=== PATIENT | female | born 1935 | race African-American/Black ===

== ENCOUNTER 2021-11-17 12:06 | Inpatient (IN) | payer MEDICARE, MEDICAID ==
[~2021-11-17] VITALS: Ht 175.3 cm; Wt 75.3 kg
[2021-11-17] MEDS ORDERED: LEVOFLOXACIN 750MG PREMIX 150 ML IV ONE (13:45)
[2021-11-17] MEDS ORDERED: VANCOMYCIN 1G PREMIX 200 ML IV ONE (13:45)
[2021-11-17 14:06] LABS: CHLORIDE 99 mEq/L (98-107)
[2021-11-17] MEDS ORDERED: VANCOMYCIN 1GM PMX (XELLIA) 200 ML IV NR (14:45)
[2021-11-17] MEDS ORDERED: SODIUM CHLORIDE 0.9% 1000ML BAG (SEPSIS BOLUS) IV ONE (15:15)
[2021-11-17 15:17] LABS: BASOPHILS % 0.4 % (0.0-2.0); EOSINOPHILS % 2.8 % (0.0-5.0); HEMATOCRIT. 29.2 % (36.0-48.0); LYMPHOCYTES % 18.1 % (20.0-50.0); MEAN CORPUSCULAR HEMOGLOBIN 24.4 pg (28.0-32.0); MEAN CORPUSCULAR VOLUME 79.3 fL (81.0-99.0); MEAN PLATELET VOLUME 9.9 fl (7.4-10.4); MONOCYTES % 8.9 % (2.0-8.0); NEUTROPHILS % 69.8 % (40.0-76.0); PLATELET 177 x1000/uL (130-400); RED BLOOD CELL COUNT 3.68 mill/uL (4.2-5.4); RED CELL DISTRIBUTION WIDTH 17.8 % (11.6-14.6)
[2021-11-17 17:18] LABS: BG BASE EXCESS 6.1 mmol/L (-2.0-2.0); BG CARBOXYHEMOGLOBIN 0.3 % (0.5-1.5); BG DEOXYHEMOGLOBIN 0.3 % (0.0-5.0); BG FRACTION INSPIRED OXYGEN 100; BG HCO3 ACT 32.6 mmol/L (22.0-26.0); BG METHEMOGLOBIN 0.1 % (0.0-1.5); BG OXYGEN SATURATION 99.7 % (92.0-98.5); BG OXYHEMOGLOBIN 99.3 % (94.0-97.0); BG PCO2 58.8 mmHg (35.0-45.0); BG PH 7.362 (7.350-7.450); BG PO2 450.9 mmHg (75.0-100.0); BG SAMPLE SITE RIGHT RADIAL; BG TOTAL HEMOGLOBIN 9.7 g/dL (12.0-18.0); BG VENT MODE VENT - AC
[2021-11-17 18:12] LABS: CLARITY URINE CLEAR (CLEAR); COLOR URINE YELLOW (YELLOW); KETONES URINE NEGATIVE (NEGATIVE); LEUKOCYTE ESTERASE URINE 2+ (NEGATIVE); NITRITE URINE NEGATIVE (NEGATIVE); OCCULT BLOOD URINE NEGATIVE (NEGATIVE); PH URINE 8.5 (4.5-8.0); PROTEIN URINE 1+ (NEGATIVE); SPECIFIC GRAVITY URINE 1.017 (1.005-1.030); UROBILINOGEN URINE 0.2 E.U./dL (0.2-1.0)
[2021-11-17] MEDS ORDERED: NOREPINEPHRINE 8MG/250ML PMX 250 ML IV ONE (19:45)
[2021-11-17] MEDS ORDERED: ACETAMINOPHEN 325MG TABLET PO PRN (20:30)
[2021-11-17] MEDS ORDERED: ONDANSETRON HCL 4MG/2ML INJ IV PRN (20:30)
[2021-11-17] MEDS ORDERED: GUAIFENESIN 200MG/10ML SUGAR FREE UDC PO PRN (20:30)
[2021-11-17] MEDS: DEXT 5%/LACTATED RINGERS 1,000 ML IV NR (20:45)
[2021-11-17] MEDS ORDERED: CEFEPIME 1,000 MG in DEXTROSE 5% WATER 50 ML IV SCH (21:00)
[2021-11-17] MEDS: ENOXAPARIN 40MG/0.4ML SYR SUBCUT SCH (21:00)
[2021-11-17] MEDS: IPRATROPIUM/ALBUTEROL 0.5-3(2.5)MG/3ML NEB HHN SCH (21:25)
[2021-11-17] MEDS ORDERED: VANCOMYCIN 750 MG in DEXT 5% WATER 250 ML IV SCH (22:00)
[2021-11-18] VITALS (67 sets, daily range): BP systolic 67–155; BP diastolic 25–90
[2021-11-18] MEDS: IPRATROPIUM/ALBUTEROL 0.5-3(2.5)MG/3ML NEB HHN SCH ×4 (03:12→20:52)
[2021-11-18 04:33] LABS: HEMATOCRIT. 26.7 % (36.0-48.0); HEMOGLOBIN. 8.4 g/dL (12.0-16.0); MEAN CORPUSCULAR HEMOGLOBIN 24.4 pg (28.0-32.0); MEAN CORPUSCULAR VOLUME 77.6 fL (81.0-99.0); MEAN PLATELET VOLUME 9.4 fl (7.4-10.4); PLATELET 200 x1000/uL (130-400); RED BLOOD CELL COUNT 3.45 mill/uL (4.2-5.4); RED CELL DISTRIBUTION WIDTH 17.4 % (11.6-14.6)
[2021-11-18 04:57] LABS: CHLORIDE 103 mEq/L (98-107)
[2021-11-18 05:15] LABS: PLATELET ESTIMATE NORMAL
[2021-11-18] MEDS: DEXT 5%/LACTATED RINGERS 1,000 ML IV SCH ×2 (06:30→18:51)
[2021-11-18] MEDS ORDERED: DEXTROSE 50% WATER 50ML SYRINGE IV PRN (06:30)
[2021-11-18] MEDS: BLOOD SUGAR DIAGNOSTIC STRIP TEST SCH ×4 (06:56→21:15)
[2021-11-18] MEDS: INSULIN LISPRO 100 UNITS/ML SUBCUT SCH ×4 (07:10→21:05)
[2021-11-18] MEDS: MIDODRINE HCL 5MG TABLET PEG SCH ×3 (09:00→17:57)
[2021-11-18] MEDS ORDERED: NOREPINEPHRINE 8MG/250ML PMX 250 ML IV PRN (10:00)
[2021-11-18] MEDS ORDERED: NOREPINEPHRINE 8 MG in DEXTROSE 5% WATER 250 ML IV PRN (10:00)
[2021-11-18] MEDS ORDERED: CEFEPIME 1,000 MG in DEXTROSE 5% WATER 50 ML IV SCH (11:00)
[2021-11-18] MEDS: PANTOPRAZOLE SODIUM 40 MG/VIAL IV SCH (12:59)
[2021-11-18] MEDS: ACETYLCYSTEINE 100MG/ML 10% VIAL 4ML INH SCH (14:11)
[2021-11-18] MEDS ORDERED: DIATR MEGLU/DIATRIZOATE SOLN 30ML ONE (14:53)
[2021-11-18] MEDS ORDERED: LEVOFLOXACIN 750MG PREMIX 150 ML IV SCH (17:00)
[2021-11-18] MEDS: METOCLOPRAMIDE HCL 10MG/2ML VIAL IV SCH ×2 (17:57→23:10)
[2021-11-18] MEDS: SUCRALFATE 1 G/10 ML UDC GT SCH ×2 (17:57→23:10)
[2021-11-18] MEDS: ENOXAPARIN 40MG/0.4ML SYR SUBCUT SCH (21:06)
[2021-11-18] MEDS: DEXT 5%/LACTATED RINGERS 1,000 ML IV NR (21:13)
[2021-11-19] VITALS (90 sets, daily range): BP systolic 64–154; BP diastolic 34–79
[2021-11-19] MEDS: IPRATROPIUM/ALBUTEROL 0.5-3(2.5)MG/3ML NEB HHN SCH ×4 (00:41→20:03)
[2021-11-19] MEDS: ACETYLCYSTEINE 100MG/ML 10% VIAL 4ML INH SCH ×3 (00:41→16:12)
[2021-11-19 05:31] LABS: HEMATOCRIT. 23.1 % (36.0-48.0); HEMOGLOBIN. 7.4 g/dL (12.0-16.0); MEAN CORPUSCULAR HEMOGLOBIN 24.6 pg (28.0-32.0); MEAN CORPUSCULAR VOLUME 76.8 fL (81.0-99.0); RED BLOOD CELL COUNT 3.01 mill/uL (4.2-5.4); RED CELL DISTRIBUTION WIDTH 17.5 % (11.6-14.6)
[2021-11-19 05:33] LABS: INR 1.1; PROTHROMBIN TIME 11.9 sec (9.6-11.0)
[2021-11-19 05:38] LABS: CHLORIDE 107 mEq/L (98-107)
[2021-11-19] MEDS: INSULIN LISPRO 100 UNITS/ML SUBCUT SCH ×3 (05:38→17:52)
[2021-11-19] MEDS: SUCRALFATE 1 G/10 ML UDC GT SCH ×3 (05:38→17:50)
[2021-11-19] MEDS: METOCLOPRAMIDE HCL 10MG/2ML VIAL IV SCH ×3 (05:38→17:50)
[2021-11-19 05:44] LABS: TOTAL IRON BINDING CAPACITY 285 ug/dL (250-450)
[2021-11-19 06:14] LABS: VITAMIN B12 SERUM 422 pg/mL (211-911)
[2021-11-19 06:25] LABS: FOLIC ACID (FOLATE) SERUM > 20.00 ng/mL (>5.38)
[2021-11-19 08:08] LABS: PLATELET ESTIMATE NORMAL
[2021-11-19] MEDS: DEXT 5%/LACTATED RINGERS 1,000 ML IV SCH ×2 (08:10→22:30)
[2021-11-19] MEDS: PANTOPRAZOLE SODIUM 40 MG/VIAL IV SCH (08:11)
[2021-11-19] MEDS: MIDODRINE HCL 5MG TABLET PEG SCH ×3 (08:11→17:50)
[2021-11-19 09:35] LABS: BG BASE EXCESS 3.2 mmol/L (-2.0-2.0); BG CARBOXYHEMOGLOBIN 0.6 % (0.5-1.5); BG DEOXYHEMOGLOBIN 0.8 % (0.0-5.0); BG FRACTION INSPIRED OXYGEN 40; BG HCO3 ACT 27.2 mmol/L (22.0-26.0); BG METHEMOGLOBIN 0.3 % (0.0-1.5); BG OXYGEN SATURATION 99.2 % (92.0-98.5); BG OXYHEMOGLOBIN 98.3 % (94.0-97.0); BG PCO2 38.6 mmHg (35.0-45.0); BG PH 7.466 (7.350-7.450); BG PO2 134.3 mmHg (75.0-100.0); BG SAMPLE SITE RIGHT RADIAL; BG TOTAL HEMOGLOBIN 7.6 g/dL (12.0-18.0); BG VENT MODE VENT - AC
[2021-11-19] MEDS: BLOOD SUGAR DIAGNOSTIC STRIP TEST SCH ×2 (12:07→17:07)
[2021-11-20] VITALS (31 sets, daily range): BP systolic 63–150; BP diastolic 14–79
[2021-11-20] MEDS: BLOOD SUGAR DIAGNOSTIC STRIP TEST SCH ×5 (00:10→23:57)
[2021-11-20] MEDS: IRON SUCROSE COMPLEX 100 MG/5 ML ML IV SCH ×2 (00:10→21:49)
[2021-11-20] MEDS: ACETYLCYSTEINE 100MG/ML 10% VIAL 4ML INH SCH ×4 (00:16→21:26)
[2021-11-20] MEDS: IPRATROPIUM/ALBUTEROL 0.5-3(2.5)MG/3ML NEB HHN SCH ×4 (00:17→21:26)
[2021-11-20] MEDS: METOCLOPRAMIDE HCL 10MG/2ML VIAL IV SCH ×4 (00:19→17:29)
[2021-11-20] MEDS: SUCRALFATE 1 G/10 ML UDC GT SCH ×4 (00:19→17:30)
[2021-11-20 05:33] LABS: BASOPHILS % 0.3 % (0.0-2.0); EOSINOPHILS % 3.7 % (0.0-5.0); HEMOGLOBIN. 7.1 g/dL (12.0-16.0); LYMPHOCYTES % 22.7 % (20.0-50.0); MEAN CORPUSCULAR HEMOGLOBIN 25.1 pg (28.0-32.0); MEAN CORPUSCULAR VOLUME 77.2 fL (81.0-99.0); MEAN PLATELET VOLUME 9.7 fl (7.4-10.4); MONOCYTES % 11.6 % (2.0-8.0); NEUTROPHILS % 61.7 % (40.0-76.0); PLATELET 149 x1000/uL (130-400); RED BLOOD CELL COUNT 2.85 mill/uL (4.2-5.4); RED CELL DISTRIBUTION WIDTH 17.7 % (11.6-14.6)
[2021-11-20 05:37] LABS: CHLORIDE 107 mEq/L (98-107)
[2021-11-20] MEDS: INSULIN LISPRO 100 UNITS/ML SUBCUT SCH ×5 (06:11→23:58)
[2021-11-20 09:44] LABS: BG BASE EXCESS 4.5 mmol/L (-2.0-2.0); BG CARBOXYHEMOGLOBIN 0.7 % (0.5-1.5); BG DEOXYHEMOGLOBIN 5.6 % (0.0-5.0); BG FRACTION INSPIRED OXYGEN 30; BG HCO3 ACT 28.9 mmol/L (22.0-26.0); BG METHEMOGLOBIN 0.3 % (0.0-1.5); BG OXYGEN SATURATION 94.3 % (92.0-98.5); BG OXYHEMOGLOBIN 93.4 % (94.0-97.0); BG PCO2 42.2 mmHg (35.0-45.0); BG PH 7.453 (7.350-7.450); BG PO2 70.8 mmHg (75.0-100.0); BG SAMPLE SITE RIGHT RADIAL; BG TOTAL HEMOGLOBIN 7.5 g/dL (12.0-18.0); BG TOTAL RESPIRATORY RATE 15 b/min; BG VENT MODE VENT - AC
[2021-11-20] MEDS: PANTOPRAZOLE SODIUM 40 MG/VIAL IV SCH (09:46)
[2021-11-20] MEDS: MIDODRINE HCL 5MG TABLET PEG SCH ×3 (09:48→17:30)
[2021-11-20] MEDS ORDERED: IRON SUCROSE COMPLEX 100 MG/5 ML ML IV SCH (10:00)
[2021-11-20] MEDS ORDERED: LEVOFLOXACIN 750MG PREMIX 150 ML IV SCH (11:00)
[2021-11-20] MEDS: DEXT 5%/LACTATED RINGERS 1,000 ML IV SCH (12:28)
[2021-11-21] VITALS (19 sets, daily range): BP systolic 92–148; BP diastolic 46–68
[2021-11-21] MEDS: METOCLOPRAMIDE HCL 10MG/2ML VIAL IV SCH ×4 (01:30→17:22)
[2021-11-21] MEDS: SUCRALFATE 1 G/10 ML UDC GT SCH ×4 (01:30→17:22)
[2021-11-21] MEDS: IPRATROPIUM/ALBUTEROL 0.5-3(2.5)MG/3ML NEB HHN SCH ×4 (01:32→19:56)
[2021-11-21] MEDS: DEXT 5%/LACTATED RINGERS 1,000 ML IV SCH (02:30)
[2021-11-21 05:17] LABS: BASOPHILS % 0.5 % (0.0-2.0); EOSINOPHILS % 6.8 % (0.0-5.0); HEMOGLOBIN. 7.1 g/dL (12.0-16.0); LYMPHOCYTES % 26.1 % (20.0-50.0); MEAN CORPUSCULAR HEMOGLOBIN 24.9 pg (28.0-32.0); MEAN CORPUSCULAR VOLUME 77.2 fL (81.0-99.0); MEAN PLATELET VOLUME 10.2 fl (7.4-10.4); MONOCYTES % 10.4 % (2.0-8.0); NEUTROPHILS % 56.2 % (40.0-76.0); PLATELET 144 x1000/uL (130-400); RED BLOOD CELL COUNT 2.85 mill/uL (4.2-5.4)
[2021-11-21] MEDS: INSULIN LISPRO 100 UNITS/ML SUBCUT SCH ×3 (05:46→17:35)
[2021-11-21] MEDS: BLOOD SUGAR DIAGNOSTIC STRIP TEST SCH ×3 (05:47→17:22)
[2021-11-21 06:11] LABS: CHLORIDE 107 mEq/L (98-107)
[2021-11-21] MEDS: ACETYLCYSTEINE 100MG/ML 10% VIAL 4ML INH SCH ×2 (08:35→15:08)
[2021-11-21] MEDS: MIDODRINE HCL 5MG TABLET PEG SCH ×3 (08:48→17:00)
[2021-11-21] MEDS: PANTOPRAZOLE SODIUM 40 MG/VIAL IV SCH (08:49)
[2021-11-21 11:29] LABS: BG BASE EXCESS 5.7 mmol/L (-2.0-2.0); BG CARBOXYHEMOGLOBIN 0.3 % (0.5-1.5); BG DEOXYHEMOGLOBIN 4.6 % (0.0-5.0); BG FRACTION INSPIRED OXYGEN 30; BG HCO3 ACT 30.7 mmol/L (22.0-26.0); BG METHEMOGLOBIN 0.1 % (0.0-1.5); BG OXYGEN SATURATION 95.4 % (92.0-98.5); BG PCO2 47.2 mmHg (35.0-45.0); BG PH 7.431 (7.350-7.450); BG PO2 76.3 mmHg (75.0-100.0); BG SAMPLE SITE RIGHT RADIAL; BG TOTAL HEMOGLOBIN 8.6 g/dL (12.0-18.0); BG VENT MODE VENT - AC
[2021-11-21] MEDS: CEFEPIME 2,000 MG in DEXT 5% WATER 100 ML IV SCH (14:20)
[2021-11-21] MEDS: POLYVINYL ALCOHOL OPHTH DROPS 15ML LEFTEYE SCH (17:22)
[2021-11-21] MEDS: IRON SUCROSE COMPLEX 100 MG/5 ML ML IV SCH (21:37)
[2021-11-21] MEDS: NITROFURANTOIN 100MG M/M CAPSULE PO SCH (21:37)
[2021-11-22] VITALS (12 sets, daily range): BP systolic 99–146; BP diastolic 51–84
[2021-11-22] MEDS: IPRATROPIUM/ALBUTEROL 0.5-3(2.5)MG/3ML NEB HHN SCH ×4 (00:18→21:23)
[2021-11-22] MEDS: ACETYLCYSTEINE 100MG/ML 10% VIAL 4ML INH SCH ×3 (00:18→13:01)
[2021-11-22] MEDS: METOCLOPRAMIDE HCL 10MG/2ML VIAL IV SCH ×5 (01:19→23:57)
[2021-11-22] MEDS: SUCRALFATE 1 G/10 ML UDC GT SCH ×5 (01:19→23:56)
[2021-11-22] MEDS: POLYVINYL ALCOHOL OPHTH DROPS 15ML LEFTEYE SCH ×5 (01:21→23:59)
[2021-11-22] MEDS: CEFEPIME 2,000 MG in DEXT 5% WATER 100 ML IV SCH ×2 (02:18→14:53)
[2021-11-22] MEDS: BLOOD SUGAR DIAGNOSTIC STRIP TEST SCH ×5 (06:03→23:57)
[2021-11-22] MEDS: INSULIN LISPRO 100 UNITS/ML SUBCUT SCH ×5 (06:07→23:58)
[2021-11-22 08:23] LABS: BASOPHILS % 0.4 % (0.0-2.0); EOSINOPHILS % 6.1 % (0.0-5.0); HEMATOCRIT. 27.6 % (36.0-48.0); HEMOGLOBIN. 8.9 g/dL (12.0-16.0); LYMPHOCYTES % 25.9 % (20.0-50.0); MEAN CORPUSCULAR HEMOGLOBIN 26.1 pg (28.0-32.0); MEAN CORPUSCULAR VOLUME 80.6 fL (81.0-99.0); MEAN PLATELET VOLUME 10.3 fl (7.4-10.4); MONOCYTES % 14.4 % (2.0-8.0); NEUTROPHILS % 53.2 % (40.0-76.0); PLATELET 141 x1000/uL (130-400); RED BLOOD CELL COUNT 3.42 mill/uL (4.2-5.4); RED CELL DISTRIBUTION WIDTH 18.2 % (11.6-14.6)
[2021-11-22 08:33] LABS: CHLORIDE 107 mEq/L (98-107)
[2021-11-22] MEDS: MIDODRINE HCL 5MG TABLET PEG SCH ×3 (09:08→17:00)
[2021-11-22] MEDS: PANTOPRAZOLE SODIUM 40 MG/VIAL IV SCH (09:12)
[2021-11-22] MEDS: NITROFURANTOIN 100MG M/M CAPSULE PO SCH ×2 (09:12→21:28)
[2021-11-23] VITALS (12 sets, daily range): BP systolic 91–156; BP diastolic 52–76
[2021-11-23] MEDS: ACETYLCYSTEINE 100MG/ML 10% VIAL 4ML INH SCH ×3 (01:13→14:09)
[2021-11-23] MEDS: IPRATROPIUM/ALBUTEROL 0.5-3(2.5)MG/3ML NEB HHN SCH ×4 (01:13→20:37)
[2021-11-23] MEDS: CEFEPIME 2,000 MG in DEXT 5% WATER 100 ML IV SCH ×2 (02:05→16:13)
[2021-11-23 06:01] LABS: BASOPHILS % 0.7 % (0.0-2.0); EOSINOPHILS % 7.1 % (0.0-5.0); HEMATOCRIT. 29.1 % (36.0-48.0); HEMOGLOBIN. 9.4 g/dL (12.0-16.0); LYMPHOCYTES % 25.6 % (20.0-50.0); MEAN CORPUSCULAR HEMOGLOBIN 25.8 pg (28.0-32.0); MEAN CORPUSCULAR VOLUME 79.7 fL (81.0-99.0); MEAN PLATELET VOLUME 10.6 fl (7.4-10.4); MONOCYTES % 10.6 % (2.0-8.0); PLATELET 157 x1000/uL (130-400); RED BLOOD CELL COUNT 3.65 mill/uL (4.2-5.4); RED CELL DISTRIBUTION WIDTH 18.4 % (11.6-14.6)
[2021-11-23 06:10] LABS: CHLORIDE 103 mEq/L (98-107)
[2021-11-23] MEDS: BLOOD SUGAR DIAGNOSTIC STRIP TEST SCH ×3 (06:13→18:25)
[2021-11-23] MEDS: METOCLOPRAMIDE HCL 10MG/2ML VIAL IV SCH ×3 (06:13→17:40)
[2021-11-23] MEDS: POLYVINYL ALCOHOL OPHTH DROPS 15ML LEFTEYE SCH ×3 (06:13→18:25)
[2021-11-23] MEDS: SUCRALFATE 1 G/10 ML UDC GT SCH ×3 (06:13→17:40)
[2021-11-23] MEDS: INSULIN LISPRO 100 UNITS/ML SUBCUT SCH ×3 (06:16→17:42)
[2021-11-23] MEDS: MIDODRINE HCL 5MG TABLET PEG SCH ×3 (07:44→17:40)
[2021-11-23] MEDS: NITROFURANTOIN 100MG M/M CAPSULE PO SCH ×2 (08:51→20:58)
[2021-11-23] MEDS: PANTOPRAZOLE SODIUM 40 MG/VIAL IV SCH (08:51)
[2021-11-24] VITALS (12 sets, daily range): BP systolic 83–142; BP diastolic 53–74
[2021-11-24] MEDS: BLOOD SUGAR DIAGNOSTIC STRIP TEST SCH ×5 (00:39→23:36)
[2021-11-24] MEDS: SUCRALFATE 1 G/10 ML UDC GT SCH ×5 (00:39→23:41)
[2021-11-24] MEDS: POLYVINYL ALCOHOL OPHTH DROPS 15ML LEFTEYE SCH ×5 (00:39→23:42)
[2021-11-24] MEDS: METOCLOPRAMIDE HCL 10MG/2ML VIAL IV SCH ×5 (00:39→23:42)
[2021-11-24] MEDS: CEFEPIME 2,000 MG in DEXT 5% WATER 100 ML IV SCH ×2 (01:17→15:23)
[2021-11-24] MEDS: IPRATROPIUM/ALBUTEROL 0.5-3(2.5)MG/3ML NEB HHN SCH ×4 (02:19→20:51)
[2021-11-24] MEDS: INSULIN LISPRO 100 UNITS/ML SUBCUT SCH ×5 (05:17→23:43)
[2021-11-24 06:12] LABS: BASOPHILS % 0.6 % (0.0-2.0); HEMATOCRIT. 27.8 % (36.0-48.0); HEMOGLOBIN. 9.2 g/dL (12.0-16.0); LYMPHOCYTES % 30.2 % (20.0-50.0); MEAN CORPUSCULAR VOLUME 79.1 fL (81.0-99.0); MEAN PLATELET VOLUME 10.1 fl (7.4-10.4); MONOCYTES % 12.3 % (2.0-8.0); NEUTROPHILS % 49.9 % (40.0-76.0); PLATELET 170 x1000/uL (130-400); RED BLOOD CELL COUNT 3.52 mill/uL (4.2-5.4)
[2021-11-24 06:34] LABS: CHLORIDE 103 mEq/L (98-107)
[2021-11-24] MEDS: MIDODRINE HCL 5MG TABLET PEG SCH ×3 (08:13→17:00)
[2021-11-24] MEDS: NITROFURANTOIN 100MG M/M CAPSULE PO SCH ×2 (08:13→20:33)
[2021-11-24] MEDS: PANTOPRAZOLE SODIUM 40 MG/VIAL IV SCH (08:13)
[2021-11-24] MEDS ORDERED: POLYETHYLENE GLYCOL 3350 (17GM) 1 DOSE PACK GT NR (11:00)
[2021-11-24] MEDS ORDERED: DOCUSATE SODIUM 100MG CAPSULE GT SCH (11:00)
[2021-11-24] MEDS: DOCUSATE SODIUM SUGAR FREE 100MG/10ML UDC GT SCH (17:32)
[2021-11-24] MEDS: SENNOSIDES 8.6MG TABLET GT SCH (20:33)
[2021-11-25] VITALS (12 sets, daily range): BP systolic 97–142; BP diastolic 53–89
[2021-11-25] MEDS: IPRATROPIUM/ALBUTEROL 0.5-3(2.5)MG/3ML NEB HHN SCH ×4 (00:40→20:36)
[2021-11-25] MEDS: CEFEPIME 2,000 MG in DEXT 5% WATER 100 ML IV SCH ×2 (01:47→14:00)
[2021-11-25] MEDS: BLOOD SUGAR DIAGNOSTIC STRIP TEST SCH ×4 (05:50→23:19)
[2021-11-25] MEDS: METOCLOPRAMIDE HCL 10MG/2ML VIAL IV SCH ×4 (05:57→23:18)
[2021-11-25] MEDS: SUCRALFATE 1 G/10 ML UDC GT SCH ×4 (05:57→23:18)
[2021-11-25] MEDS: INSULIN LISPRO 100 UNITS/ML SUBCUT SCH ×4 (05:58→23:19)
[2021-11-25] MEDS: POLYVINYL ALCOHOL OPHTH DROPS 15ML LEFTEYE SCH ×4 (05:58→23:19)
[2021-11-25 06:01] LABS: BASOPHILS % 0.4 % (0.0-2.0); EOSINOPHILS % 4.2 % (0.0-5.0); HEMATOCRIT. 35.7 % (36.0-48.0); HEMOGLOBIN. 11.3 g/dL (12.0-16.0); MEAN CORPUSCULAR HEMOGLOBIN 25.7 pg (28.0-32.0); MEAN CORPUSCULAR VOLUME 81.1 fL (81.0-99.0); MEAN PLATELET VOLUME 10.1 fl (7.4-10.4); MONOCYTES % 10.6 % (2.0-8.0); NEUTROPHILS % 66.8 % (40.0-76.0); PLATELET 189 x1000/uL (130-400); RED CELL DISTRIBUTION WIDTH 19.8 % (11.6-14.6)
[2021-11-25 06:49] LABS: CHLORIDE 103 mEq/L (98-107)
[2021-11-25] MEDS: MIDODRINE HCL 5MG TABLET PEG SCH ×3 (08:17→17:00)
[2021-11-25] MEDS: PANTOPRAZOLE SODIUM 40 MG/VIAL IV SCH (08:17)
[2021-11-25] MEDS: DOCUSATE SODIUM SUGAR FREE 100MG/10ML UDC GT SCH ×2 (08:17→17:00)
[2021-11-25] MEDS: NITROFURANTOIN 100MG M/M CAPSULE PO SCH ×2 (08:17→21:09)
[2021-11-25] MEDS: LEVOTHYROXINE SODIUM 50MCG TABLET PEG SCH (12:02)
[2021-11-25] MEDS: SENNOSIDES 8.6MG TABLET GT SCH (21:09)
[2021-11-26] VITALS (12 sets, daily range): BP systolic 86–128; BP diastolic 41–69
[2021-11-26] MEDS: IPRATROPIUM/ALBUTEROL 0.5-3(2.5)MG/3ML NEB HHN SCH ×4 (00:45→20:28)
[2021-11-26] MEDS: CEFEPIME 2,000 MG in DEXT 5% WATER 100 ML IV SCH ×2 (01:44→13:10)
[2021-11-26 05:14] LABS: BASOPHILS % 0.6 % (0.0-2.0); EOSINOPHILS % 4.1 % (0.0-5.0); HEMATOCRIT. 32.4 % (36.0-48.0); HEMOGLOBIN. 10.4 g/dL (12.0-16.0); LYMPHOCYTES % 28.4 % (20.0-50.0); MEAN CORPUSCULAR HEMOGLOBIN 25.8 pg (28.0-32.0); MEAN CORPUSCULAR VOLUME 80.8 fL (81.0-99.0); MEAN PLATELET VOLUME 10.2 fl (7.4-10.4); MONOCYTES % 13.2 % (2.0-8.0); NEUTROPHILS % 53.7 % (40.0-76.0); PLATELET 212 x1000/uL (130-400); RED BLOOD CELL COUNT 4.01 mill/uL (4.2-5.4); RED CELL DISTRIBUTION WIDTH 19.7 % (11.6-14.6)
[2021-11-26 05:43] LABS: CHLORIDE 103 mEq/L (98-107)
[2021-11-26] MEDS: SUCRALFATE 1 G/10 ML UDC GT SCH ×3 (06:10→17:21)
[2021-11-26] MEDS: METOCLOPRAMIDE HCL 10MG/2ML VIAL IV SCH ×3 (06:10→17:21)
[2021-11-26] MEDS: BLOOD SUGAR DIAGNOSTIC STRIP TEST SCH ×3 (06:11→17:45)
[2021-11-26] MEDS: POLYVINYL ALCOHOL OPHTH DROPS 15ML LEFTEYE SCH ×3 (06:11→17:48)
[2021-11-26] MEDS: INSULIN LISPRO 100 UNITS/ML SUBCUT SCH ×3 (06:11→17:49)
[2021-11-26] MEDS: MIDODRINE HCL 5MG TABLET PEG SCH ×3 (08:29→17:21)
[2021-11-26] MEDS: NITROFURANTOIN 100MG M/M CAPSULE PO SCH ×2 (08:30→20:14)
[2021-11-26] MEDS: DOCUSATE SODIUM SUGAR FREE 100MG/10ML UDC GT SCH ×2 (08:30→17:48)
[2021-11-26] MEDS: PANTOPRAZOLE SODIUM 40 MG/VIAL IV SCH (08:30)
[2021-11-26] MEDS: LEVOTHYROXINE SODIUM 50MCG TABLET PEG SCH (08:30)
[2021-11-26] MEDS: SENNOSIDES 8.6MG TABLET GT SCH (20:14)
[2021-11-27] VITALS (12 sets, daily range): BP systolic 83–146; BP diastolic 51–87
[2021-11-27] MEDS: BLOOD SUGAR DIAGNOSTIC STRIP TEST SCH ×5 (00:07→23:36)
[2021-11-27] MEDS: SUCRALFATE 1 G/10 ML UDC GT SCH ×5 (00:16→23:35)
[2021-11-27] MEDS: POLYVINYL ALCOHOL OPHTH DROPS 15ML LEFTEYE SCH ×5 (00:16→23:36)
[2021-11-27] MEDS: METOCLOPRAMIDE HCL 10MG/2ML VIAL IV SCH ×5 (00:16→23:35)
[2021-11-27] MEDS: INSULIN LISPRO 100 UNITS/ML SUBCUT SCH ×5 (00:20→23:37)
[2021-11-27] MEDS: CEFEPIME 2,000 MG in DEXT 5% WATER 100 ML IV SCH ×2 (01:49→15:24)
[2021-11-27] MEDS: IPRATROPIUM/ALBUTEROL 0.5-3(2.5)MG/3ML NEB HHN SCH ×4 (03:16→19:55)
[2021-11-27 06:39] LABS: CHLORIDE 102 mEq/L (98-107)
[2021-11-27 06:55] LABS: BASOPHILS % 0.4 % (0.0-2.0); EOSINOPHILS % 2.2 % (0.0-5.0); HEMATOCRIT. 31.4 % (36.0-48.0); LYMPHOCYTES % 29.8 % (20.0-50.0); MEAN CORPUSCULAR HEMOGLOBIN 25.4 pg (28.0-32.0); MEAN CORPUSCULAR VOLUME 80.2 fL (81.0-99.0); MEAN PLATELET VOLUME 10.2 fl (7.4-10.4); MONOCYTES % 8.8 % (2.0-8.0); NEUTROPHILS % 58.8 % (40.0-76.0); PLATELET 214 x1000/uL (130-400); RED BLOOD CELL COUNT 3.92 mill/uL (4.2-5.4); RED CELL DISTRIBUTION WIDTH 19.7 % (11.6-14.6)
[2021-11-27] MEDS: LEVOTHYROXINE SODIUM 50MCG TABLET PEG SCH (09:19)
[2021-11-27] MEDS: DOCUSATE SODIUM SUGAR FREE 100MG/10ML UDC GT SCH ×2 (09:20→18:06)
[2021-11-27] MEDS: PANTOPRAZOLE SODIUM 40 MG/VIAL IV SCH (09:20)
[2021-11-27] MEDS: NITROFURANTOIN 100MG M/M CAPSULE PO SCH ×2 (09:20→20:36)
[2021-11-27] MEDS: MIDODRINE HCL 5MG TABLET PEG SCH ×3 (09:20→18:07)
[2021-11-27] MEDS: GUAIFENESIN 200MG/10ML SUGAR FREE UDC PO SCH ×2 (18:06→20:36)
[2021-11-27] MEDS: SENNOSIDES 8.6MG TABLET GT SCH (20:36)
[2021-11-28] VITALS (12 sets, daily range): BP systolic 102–138; BP diastolic 53–105
[2021-11-28] MEDS: IPRATROPIUM/ALBUTEROL 0.5-3(2.5)MG/3ML NEB HHN SCH ×4 (01:55→19:49)
[2021-11-28] MEDS: CEFEPIME 2,000 MG in DEXT 5% WATER 100 ML IV SCH ×2 (02:08→14:26)
[2021-11-28] MEDS: METOCLOPRAMIDE HCL 10MG/2ML VIAL IV SCH ×3 (05:12→18:25)
[2021-11-28] MEDS: SUCRALFATE 1 G/10 ML UDC GT SCH ×3 (05:12→18:25)
[2021-11-28] MEDS: POLYVINYL ALCOHOL OPHTH DROPS 15ML LEFTEYE SCH ×3 (05:12→18:25)
[2021-11-28] MEDS: INSULIN LISPRO 100 UNITS/ML SUBCUT SCH ×3 (05:16→18:26)
[2021-11-28] MEDS: BLOOD SUGAR DIAGNOSTIC STRIP TEST SCH ×3 (05:19→17:24)
[2021-11-28 06:10] LABS: BASOPHILS % 0.5 % (0.0-2.0); EOSINOPHILS % 4.2 % (0.0-5.0); HEMATOCRIT. 30.5 % (36.0-48.0); HEMOGLOBIN. 9.8 g/dL (12.0-16.0); LYMPHOCYTES % 25.6 % (20.0-50.0); MEAN CORPUSCULAR HEMOGLOBIN 25.7 pg (28.0-32.0); MEAN CORPUSCULAR VOLUME 79.8 fL (81.0-99.0); MEAN PLATELET VOLUME 10.2 fl (7.4-10.4); MONOCYTES % 10.7 % (2.0-8.0); PLATELET 204 x1000/uL (130-400); RED BLOOD CELL COUNT 3.82 mill/uL (4.2-5.4); RED CELL DISTRIBUTION WIDTH 19.6 % (11.6-14.6)
[2021-11-28 06:28] LABS: CHLORIDE 102 mEq/L (98-107)
[2021-11-28] MEDS: PANTOPRAZOLE SODIUM 40 MG/VIAL IV SCH (10:44)
[2021-11-28] MEDS: DOCUSATE SODIUM SUGAR FREE 100MG/10ML UDC GT SCH ×2 (10:44→18:25)
[2021-11-28] MEDS: GUAIFENESIN 200MG/10ML SUGAR FREE UDC PO SCH ×4 (10:44→21:17)
[2021-11-28] MEDS: LEVOTHYROXINE SODIUM 50MCG TABLET PEG SCH (10:45)
[2021-11-28] MEDS: MIDODRINE HCL 5MG TABLET PEG SCH ×3 (10:45→17:00)
[2021-11-28] MEDS: NITROFURANTOIN 100MG M/M CAPSULE PO SCH ×2 (10:45→21:17)
[2021-11-28 12:24] LABS: BG BASE EXCESS 4.3 mmol/L (-2.0-2.0); BG CARBOXYHEMOGLOBIN 0.6 % (0.5-1.5); BG FRACTION INSPIRED OXYGEN 40; BG HCO3 ACT 30.4 mmol/L (22.0-26.0); BG METHEMOGLOBIN 0.2 % (0.0-1.5); BG OXYHEMOGLOBIN 96.2 % (94.0-97.0); BG PCO2 53.1 mmHg (35.0-45.0); BG PH 7.376 (7.350-7.450); BG PO2 95.5 mmHg (75.0-100.0); BG SAMPLE SITE RIGHT RADIAL; BG TOTAL HEMOGLOBIN 11.1 g/dL (12.0-18.0); BG VENT MODE VENT - CPAP
[2021-11-28] MEDS ORDERED: LEVO50TA8 PEG (19:54)
[2021-11-28] MEDS ORDERED: MIDO5TAB4 PEG (19:54)
[2021-11-28] MEDS ORDERED: NITR100C11 PO (19:54)
[2021-11-28] MEDS ORDERED: IPRA3AMP9 HHN (19:54)
[2021-11-29] VITALS (7 sets, daily range): BP systolic 110–151; BP diastolic 60–77
[2021-11-29] MEDS: INSULIN LISPRO 100 UNITS/ML SUBCUT SCH
[2021-11-29] MEDS: SENNOSIDES 8.6MG TABLET GT SCH (00:10)
[2021-11-29] MEDS: METOCLOPRAMIDE HCL 10MG/2ML VIAL IV SCH (00:10)
[2021-11-29] MEDS: POLYVINYL ALCOHOL OPHTH DROPS 15ML LEFTEYE SCH (00:10)
[2021-11-29] MEDS: SUCRALFATE 1 G/10 ML UDC GT SCH (00:10)
[2021-11-29] MEDS: BLOOD SUGAR DIAGNOSTIC STRIP TEST SCH (00:10)
[2021-11-29] MEDS: IPRATROPIUM/ALBUTEROL 0.5-3(2.5)MG/3ML NEB HHN SCH (01:47)
== END 2021-11-29 04:00 | DRG 870 ==
LOC: ER 12:06 → MICUSO 19:09 → EDBEDREQSVC 20:51 → EDBEDREQTM 20:51 → MICUNO 11-18 10:00 → 5EST 11-20 14:12
PROVIDERS: ADMIT Family Medicine Adult Medicine; ATTEND Family Medicine Adult Medicine
PROC: 5A1955Z Respiratory Ventilation, Greater than 96 Consecutive Hours (ICD-10-PCS; principal; 2021-11-17)
PROC: 02HV33Z Insertion of Infusion Device into Superior Vena Cava, Percutaneous Approach (ICD-10-PCS; 2021-11-17)
PROC: B548ZZA Ultrasonography of Superior Vena Cava, Guidance (ICD-10-PCS; 2021-11-17)
PROC: 0D2DXUZ Change Feeding Device in Lower Intestinal Tract, External Approach (ICD-10-PCS; 2021-11-18)
PROC: 30233N1 Transfusion of Nonautologous Red Blood Cells into Peripheral Vein, Percutaneous Approach (ICD-10-PCS; 2021-11-21)
DX: A41.52 Sepsis due to Pseudomonas (principal); R65.21 Severe sepsis with septic shock; J96.21 Acute and chronic respiratory failure with hypoxia; J15.1 Pneumonia due to Pseudomonas; J96.22 Acute and chronic respiratory failure with hypercapnia; I48.92 Unspecified atrial flutter; E44.0 Moderate protein-calorie malnutrition; N39.0 Urinary tract infection, site not specified; I69.354 Hemiplegia and hemiparesis following cerebral infarction affecting left non-dominant side; S05.92XA Unspecified injury of left eye and orbit, initial encounter; Z16.12 Extended spectrum beta lactamase (ESBL) resistance; J95.851 Ventilator associated pneumonia; A41.51 Sepsis due to Escherichia coli [E. coli]; E03.9 Hypothyroidism, unspecified; K94.29 Other complications of gastrostomy; Y83.3 Surgical operation with formation of external stoma as the cause of abnormal reaction of the patient, or of later complication, without mention of misadventure at the time of the procedure; D50.9 Iron deficiency anemia, unspecified; I51.7 Cardiomegaly; F03.90 Unspecified dementia, unspecified severity, without behavioral disturbance, psychotic disturbance, mood disturbance, and anxiety; R13.10 Dysphagia, unspecified; Z20.822 Contact with and (suspected) exposure to COVID-19; K21.9 Gastro-esophageal reflux disease without esophagitis; I35.0 Nonrheumatic aortic (valve) stenosis; K44.9 Diaphragmatic hernia without obstruction or gangrene; R59.0 Localized enlarged lymph nodes; X58.XXXA Exposure to other specified factors, initial encounter; Z68.24 Body mass index [BMI] 24.0-24.9, adult; Z79.899 Other long term (current) drug therapy; Y92.128 Other place in nursing home as the place of occurrence of the external cause; Z88.0 Allergy status to penicillin; Y93.89 Activity, other specified; Y92.89 Other specified places as the place of occurrence of the external cause; Y99.8 Other external cause status
CPT/HCPCS: 36415; 36600; 71045; 71250; 74018; 80048; 80053; 81003; 82375; 82607; 82728; 82746; 82805; 82962; 83036; 83540; 83550; 83605; 83735; 83880; 84145; 84443; 84484; 85018; 85025; 85044; 86850; 86900; 86920; 87070; 87077; 87102; 87186; 87426; 93005; 93306; 94002; 94003; 94640; 99291; A6261; C9113; J0692; J1650; J1815; J1956; J2405; J2765; J3370; J3490; J7030; J7040; J7060; J7121; J7608; P9016; Q9963; A4315

== ENCOUNTER 2022-01-07 13:47 | Inpatient (IN) | payer MEDICARE, MEDICAID ==
[~2022-01-07] VITALS: Ht 175.3 cm; Wt 69.4 kg
[~2022-01-07 13:47] MED LIST: IPRA3AMP9 HHN; LEVO50TA8 PEG; MIDO5TAB4 PEG; NITR100C11 PO
[2022-01-07 14:37] LABS: BG BASE EXCESS 8.7 mmol/L (-2.0-2.0); BG CARBOXYHEMOGLOBIN 0.6 % (0.5-1.5); BG DEOXYHEMOGLOBIN 1.1 % (0.0-5.0); BG FRACTION INSPIRED OXYGEN 40; BG HCO3 ACT 33.1 mmol/L (22.0-26.0); BG METHEMOGLOBIN 0.4 % (0.0-1.5); BG OXYGEN SATURATION 98.9 % (92.0-98.5); BG OXYHEMOGLOBIN 97.9 % (94.0-97.0); BG PCO2 44.9 mmHg (35.0-45.0); BG PH 7.485 (7.350-7.450); BG SAMPLE SITE RIGHT RADIAL; BG TOTAL HEMOGLOBIN 11.1 g/dL (12.0-18.0); BG VENT MODE VENT - AC
[2022-01-07 14:43] LABS: BASOPHILS % 0.3 % (0.0-2.0); EOSINOPHILS % 0.8 % (0.0-5.0); HEMATOCRIT. 30.2 % (36.0-48.0); HEMOGLOBIN. 10.2 g/dL (12.0-16.0); LYMPHOCYTES % 20.4 % (20.0-50.0); MEAN CORPUSCULAR HEMOGLOBIN 27.1 pg (28.0-32.0); MEAN CORPUSCULAR VOLUME 80.6 fL (81.0-99.0); MEAN PLATELET VOLUME 10.8 fl (7.4-10.4); MONOCYTES % 6.1 % (2.0-8.0); NEUTROPHILS % 72.4 % (40.0-76.0); PLATELET 142 x1000/uL (130-400); RED BLOOD CELL COUNT 3.75 mill/uL (4.2-5.4); RED CELL DISTRIBUTION WIDTH 18.9 % (11.6-14.6)
[2022-01-07 14:50] LABS: CHLORIDE 93 mEq/L (98-107)
[2022-01-07] MEDS ORDERED: CEFEPIME 2,000 MG in DEXT 5% WATER 100 ML IV STA (15:06)
[2022-01-07] MEDS ORDERED: VANCOMYCIN 1G PREMIX 200 ML IV ONE (15:15)
[2022-01-07 15:22] LABS: CLARITY URINE TURBID (CLEAR); COLOR URINE DARK YELLOW (YELLOW); KETONES URINE NEGATIVE (NEGATIVE); LEUKOCYTE ESTERASE URINE 3+ (NEGATIVE); NITRITE URINE NEGATIVE (NEGATIVE); OCCULT BLOOD URINE NEGATIVE (NEGATIVE); PROTEIN URINE 1+ (NEGATIVE); SPECIFIC GRAVITY URINE 1.016 (1.005-1.030); UROBILINOGEN URINE 0.2 E.U./dL (0.2-1.0)
[2022-01-07] MEDS ORDERED: IPRATROPIUM/ALBUTEROL 0.5-3(2.5)MG/3ML NEB HHN PRN (17:45)
[2022-01-07 18:03] LABS: TOTAL IRON BINDING CAPACITY 366 ug/dL (250-450)
[2022-01-07] MEDS ORDERED: LEVOFLOXACIN 500MG PREMIX 100 ML IV SCH ×2 (18:30→23:00)
[2022-01-07] MEDS ORDERED: IPRATROPIUM/ALBUTEROL 0.5-3(2.5)MG/3ML NEB NEB PRN (19:45)
[2022-01-07] MEDS ORDERED: ONDANSETRON HCL 4MG/2ML INJ IV PRN (19:45)
[2022-01-07] MEDS ORDERED: MAGNESIUM/ALUMINUM HYDROXIDE/SIMETHICONE 30ML UDC PO PRN (19:45)
[2022-01-07] MEDS ORDERED: DOCUSATE SODIUM 100MG CAPSULE PO PRN (19:45)
[2022-01-07] MEDS ORDERED: VANCOMYCIN 1G PREMIX 200 ML IV SCH (19:45)
[2022-01-07] MEDS ORDERED: ACETAMINOPHEN 650MG/20.3ML UDC GT PRN ×2 (19:45)
[2022-01-07] MEDS ORDERED: CLONIDINE 0.1MG TABLET PO PRN (19:45)
[2022-01-07] MEDS ORDERED: GUAIFENESIN 200MG/10ML SUGAR FREE UDC PO PRN (19:45)
[2022-01-07] MEDS ORDERED: MORPHINE SULFATE 2 MG/ML CPJ (NOT FOR IM USE) IV PRN (19:45)
[2022-01-07 20:00] VITALS: BP_SYST 131; BP_SYST 132; BP_DIAS 75; BP_DIAS 83
[2022-01-07] MEDS ORDERED: HYDRALAZINE 20MG/ML VIAL IV PRN (20:00)
[2022-01-07] MEDS: GUAIFENESIN 200MG/10ML SUGAR FREE UDC PO SCH ×2 (20:03→23:11)
[2022-01-07] MEDS ORDERED: NALOXONE HCL 0.4MG/ML VIAL IV PRN (20:45)
[2022-01-07] MEDS: IPRATROPIUM/ALBUTEROL 0.5-3(2.5)MG/3ML NEB HHN SCH (20:49)
[2022-01-07 21:00] VITALS: BP 135/59
[2022-01-07 22:00] VITALS: BP 129/62
[2022-01-07] MEDS: ENOXAPARIN 40MG/0.4ML SYR SUBCUT SCH (22:21)
[2022-01-07] MEDS: CEFEPIME 2,000 MG in DEXT 5% WATER 100 ML IV SCH (22:22)
[2022-01-07 23:00] VITALS: BP 108/58
[2022-01-08] VITALS (15 sets, daily range): BP systolic 95–110; BP diastolic 40–64
[2022-01-08] MEDS: IPRATROPIUM/ALBUTEROL 0.5-3(2.5)MG/3ML NEB HHN SCH ×6 (00:43→20:21)
[2022-01-08] MEDS: CEFEPIME 2,000 MG in DEXT 5% WATER 100 ML IV SCH ×2 (05:03→17:24)
[2022-01-08] MEDS: GUAIFENESIN 200MG/10ML SUGAR FREE UDC PO SCH ×3 (05:03→17:24)
[2022-01-08] MEDS ORDERED: VANCOMYCIN 1.25GM PMX (XELLIA) 250 ML IV SCH (06:00)
[2022-01-08 06:22] LABS: CHLORIDE 95 mEq/L (98-107)
[2022-01-08 06:28] LABS: BASOPHILS % 0.3 % (0.0-2.0); HEMATOCRIT. 30.1 % (36.0-48.0); HEMOGLOBIN. 10.2 g/dL (12.0-16.0); LYMPHOCYTES % 26.6 % (20.0-50.0); MEAN CORPUSCULAR HEMOGLOBIN 27.3 pg (28.0-32.0); MEAN CORPUSCULAR VOLUME 80.7 fL (81.0-99.0); MONOCYTES % 5.8 % (2.0-8.0); NEUTROPHILS % 66.3 % (40.0-76.0); PLATELET 138 x1000/uL (130-400); RED BLOOD CELL COUNT 3.73 mill/uL (4.2-5.4); RED CELL DISTRIBUTION WIDTH 18.9 % (11.6-14.6)
[2022-01-08 06:32] LABS: T4 FREE 1.25 ng/dL (0.76-1.46)
[2022-01-08 06:34] LABS: LDL CHOLESTEROL 121 mg/dL (5-100)
[2022-01-08 06:35] LABS: CREATINE KINASE 20 IU/L (26-192); HDL CHOLESTEROL 44 mg/dL (40-59)
[2022-01-08] MEDS ORDERED: LEVOFLOXACIN 750MG PREMIX 150 ML IV SCH (11:00)
[2022-01-08] MEDS ORDERED: DEXTROSE 50% WATER 50ML SYRINGE IV PRN (20:00)
[2022-01-08] MEDS ORDERED: MIDODRINE HCL 5MG TABLET PO NR (21:19)
[2022-01-08] MEDS: ENOXAPARIN 40MG/0.4ML SYR SUBCUT SCH (21:47)
[2022-01-08] MEDS: INSULIN LISPRO 100 UNITS/ML SUBCUT SCH (21:47)
[2022-01-08] MEDS: BLOOD SUGAR DIAGNOSTIC STRIP TEST SCH (21:47)
[2022-01-08] MEDS ORDERED: PNEUMOC 13-VAL CONJ-DIP CRM/PF 0.5 ML DISP.SYRIN IM ONE (23:15)
[2022-01-08] MEDS ORDERED: INFLUENZA VACCINE 05/PF 0.5 ML SYRINGE IM ONE (23:15)
[2022-01-09] VITALS (12 sets, daily range): BP systolic 93–134; BP diastolic 46–72
[2022-01-09] MEDS ORDERED: VANCOMYCIN 1GM PMX (XELLIA) 200 ML IV SCH
[2022-01-09] MEDS: IPRATROPIUM/ALBUTEROL 0.5-3(2.5)MG/3ML NEB HHN SCH ×6 (00:33→20:57)
[2022-01-09] MEDS: GUAIFENESIN 200MG/10ML SUGAR FREE UDC PO SCH ×5 (00:47→23:29)
[2022-01-09] MEDS ORDERED: PNEUMOCOCCAL 23-VAL P-SAC VAC 0.5 ML IM ONE (02:00)
[2022-01-09] MEDS: CEFEPIME 2,000 MG in DEXT 5% WATER 100 ML IV SCH (05:24)
[2022-01-09 06:46] LABS: BASOPHILS % 0.5 % (0.0-2.0); EOSINOPHILS % 4.2 % (0.0-5.0); HEMATOCRIT. 28.7 % (36.0-48.0); HEMOGLOBIN. 9.8 g/dL (12.0-16.0); LYMPHOCYTES % 29.2 % (20.0-50.0); MEAN CORPUSCULAR HEMOGLOBIN 27.5 pg (28.0-32.0); MEAN CORPUSCULAR VOLUME 80.8 fL (81.0-99.0); MEAN PLATELET VOLUME 10.7 fl (7.4-10.4); MONOCYTES % 10.6 % (2.0-8.0); NEUTROPHILS % 55.5 % (40.0-76.0); PLATELET 130 x1000/uL (130-400); RED BLOOD CELL COUNT 3.56 mill/uL (4.2-5.4); RED CELL DISTRIBUTION WIDTH 18.8 % (11.6-14.6)
[2022-01-09 06:58] LABS: CHLORIDE 102 mEq/L (98-107)
[2022-01-09] MEDS: BLOOD SUGAR DIAGNOSTIC STRIP TEST SCH ×4 (07:43→21:09)
[2022-01-09] MEDS: INSULIN LISPRO 100 UNITS/ML SUBCUT SCH ×4 (07:49→21:10)
[2022-01-09] MEDS: MIDODRINE HCL 5MG TABLET GT SCH ×3 (08:01→17:00)
[2022-01-09] MEDS: MEROPENEM 1,000 MG in SODIUM CHLORIDE 0.9% 100 ML IV SCH ×2 (18:13→23:29)
[2022-01-09] MEDS: ENOXAPARIN 40MG/0.4ML SYR SUBCUT SCH (21:10)
[2022-01-10] VITALS (12 sets, daily range): BP systolic 94–156; BP diastolic 41–77
[2022-01-10] MEDS: IPRATROPIUM/ALBUTEROL 0.5-3(2.5)MG/3ML NEB HHN SCH ×6 (00:28→21:10)
[2022-01-10] MEDS: GUAIFENESIN 200MG/10ML SUGAR FREE UDC PO SCH ×4 (05:23→23:11)
[2022-01-10 07:20] LABS: CHLORIDE 104 mEq/L (98-107)
[2022-01-10 07:35] LABS: BASOPHILS % 0.5 % (0.0-2.0); EOSINOPHILS % 4.9 % (0.0-5.0); HEMATOCRIT. 29.6 % (36.0-48.0); HEMOGLOBIN. 9.9 g/dL (12.0-16.0); LYMPHOCYTES % 39.8 % (20.0-50.0); MEAN CORPUSCULAR HEMOGLOBIN 27.3 pg (28.0-32.0); MEAN CORPUSCULAR VOLUME 81.4 fL (81.0-99.0); MEAN PLATELET VOLUME 10.9 fl (7.4-10.4); MONOCYTES % 11.2 % (2.0-8.0); NEUTROPHILS % 43.6 % (40.0-76.0); PLATELET 127 x1000/uL (130-400); RED BLOOD CELL COUNT 3.64 mill/uL (4.2-5.4); RED CELL DISTRIBUTION WIDTH 18.7 % (11.6-14.6)
[2022-01-10] MEDS: MEROPENEM 1,000 MG in SODIUM CHLORIDE 0.9% 100 ML IV SCH ×3 (07:49→23:11)
[2022-01-10] MEDS: INSULIN LISPRO 100 UNITS/ML SUBCUT SCH ×4 (07:50→21:00)
[2022-01-10] MEDS: MIDODRINE HCL 5MG TABLET GT SCH ×3 (08:00→16:27)
[2022-01-10] MEDS: BLOOD SUGAR DIAGNOSTIC STRIP TEST SCH ×4 (08:10→21:00)
[2022-01-10] MEDS: ENOXAPARIN 40MG/0.4ML SYR SUBCUT SCH (20:59)
[2022-01-11] VITALS (12 sets, daily range): BP systolic 104–156; BP diastolic 40–66
[2022-01-11] MEDS: IPRATROPIUM/ALBUTEROL 0.5-3(2.5)MG/3ML NEB HHN SCH ×5 (01:15→20:40)
[2022-01-11] MEDS: GUAIFENESIN 200MG/10ML SUGAR FREE UDC PO SCH ×4 (05:00→23:00)
[2022-01-11 07:22] LABS: HEMATOCRIT. 29.3 % (36.0-48.0); HEMOGLOBIN. 9.7 g/dL (12.0-16.0); MEAN CORPUSCULAR HEMOGLOBIN 26.9 pg (28.0-32.0); MEAN CORPUSCULAR VOLUME 81.3 fL (81.0-99.0); MEAN PLATELET VOLUME 11.4 fl (7.4-10.4); PLATELET 147 x1000/uL (130-400); RED CELL DISTRIBUTION WIDTH 18.9 % (11.6-14.6)
[2022-01-11 07:34] LABS: CHLORIDE 107 mEq/L (98-107)
[2022-01-11] MEDS: BLOOD SUGAR DIAGNOSTIC STRIP TEST SCH ×4 (08:13→20:30)
[2022-01-11] MEDS: MEROPENEM 1,000 MG in SODIUM CHLORIDE 0.9% 100 ML IV SCH ×3 (08:25→23:01)
[2022-01-11] MEDS: MIDODRINE HCL 5MG TABLET GT SCH ×2 (08:25→12:21)
[2022-01-11] MEDS: INSULIN LISPRO 100 UNITS/ML SUBCUT SCH ×4 (08:26→20:42)
[2022-01-11 14:36] LABS: PLATELET ESTIMATE NORMAL
[2022-01-11] MEDS ORDERED: NA PHOS,M-B/NA PHOS,DI-BA ENEMA 118ML PR NR (17:30)
[2022-01-11] MEDS: ENOXAPARIN 40MG/0.4ML SYR SUBCUT SCH (20:31)
[2022-01-12] VITALS (16 sets, daily range): BP systolic 81–131; BP diastolic 34–77
[2022-01-12] MEDS: MIDODRINE HCL 5MG TABLET GT PRN ×2 (01:32→21:46)
[2022-01-12] MEDS: IPRATROPIUM/ALBUTEROL 0.5-3(2.5)MG/3ML NEB HHN SCH ×6 (01:50→21:19)
[2022-01-12] MEDS: GUAIFENESIN 200MG/10ML SUGAR FREE UDC PO SCH ×3 (05:36→18:41)
[2022-01-12] MEDS: BLOOD SUGAR DIAGNOSTIC STRIP TEST SCH ×4 (07:30→21:43)
[2022-01-12] MEDS: MEROPENEM 1,000 MG in SODIUM CHLORIDE 0.9% 100 ML IV SCH ×2 (09:01→18:42)
[2022-01-12] MEDS: INSULIN LISPRO 100 UNITS/ML SUBCUT SCH ×4 (09:05→21:43)
[2022-01-12 10:11] LABS: HEMATOCRIT. 32.2 % (36.0-48.0); HEMOGLOBIN. 10.4 g/dL (12.0-16.0); MEAN CORPUSCULAR HEMOGLOBIN 26.4 pg (28.0-32.0); MEAN PLATELET VOLUME 10.8 fl (7.4-10.4); PLATELET 156 x1000/uL (130-400); RED BLOOD CELL COUNT 3.93 mill/uL (4.2-5.4); RED CELL DISTRIBUTION WIDTH 18.5 % (11.6-14.6)
[2022-01-12 10:29] LABS: CHLORIDE 106 mEq/L (98-107)
[2022-01-12] MEDS ORDERED: NITR100C11 PO (16:46)
[2022-01-12] MEDS ORDERED: CEPH500C2 GT (16:46)
[2022-01-12 17:22] LABS: PLATELET ESTIMATE NORMAL
[2022-01-12] MEDS: ENOXAPARIN 30MG/0.3ML SYR SUBCUT SCH (21:43)
[2022-01-13] VITALS (16 sets, daily range): BP systolic 74–136; BP diastolic 31–94
[2022-01-13] MEDS: MEROPENEM 1,000 MG in SODIUM CHLORIDE 0.9% 100 ML IV SCH ×3 (00:18→17:07)
[2022-01-13] MEDS: GUAIFENESIN 200MG/10ML SUGAR FREE UDC PO SCH ×4 (00:18→17:07)
[2022-01-13] MEDS: IPRATROPIUM/ALBUTEROL 0.5-3(2.5)MG/3ML NEB HHN SCH ×7 (00:30→23:45)
[2022-01-13 07:39] LABS: HEMATOCRIT. 35.2 % (36.0-48.0); HEMOGLOBIN. 11.3 g/dL (12.0-16.0); MEAN CORPUSCULAR HEMOGLOBIN 26.9 pg (28.0-32.0); MEAN CORPUSCULAR VOLUME 83.7 fL (81.0-99.0); MEAN PLATELET VOLUME 10.9 fl (7.4-10.4); PLATELET 152 x1000/uL (130-400); RED BLOOD CELL COUNT 4.21 mill/uL (4.2-5.4); RED CELL DISTRIBUTION WIDTH 18.9 % (11.6-14.6)
[2022-01-13 07:53] LABS: CHLORIDE 106 mEq/L (98-107)
[2022-01-13] MEDS: INSULIN LISPRO 100 UNITS/ML SUBCUT SCH ×4 (08:09→21:25)
[2022-01-13] MEDS: BLOOD SUGAR DIAGNOSTIC STRIP TEST SCH ×4 (08:10→21:25)
[2022-01-13] MEDS: MIDODRINE HCL 5MG TABLET GT PRN ×2 (10:53→17:07)
[2022-01-13 14:01] LABS: PLATELET ESTIMATE NORMAL
[2022-01-13] MEDS: ENOXAPARIN 30MG/0.3ML SYR SUBCUT SCH (21:24)
[2022-01-14] VITALS (12 sets, daily range): BP systolic 87–135; BP diastolic 45–63
[2022-01-14] MEDS: GUAIFENESIN 200MG/10ML SUGAR FREE UDC PO SCH ×4 (00:20→18:46)
[2022-01-14] MEDS: MEROPENEM 1,000 MG in SODIUM CHLORIDE 0.9% 100 ML IV SCH ×3 (00:20→18:46)
[2022-01-14] MEDS: IPRATROPIUM/ALBUTEROL 0.5-3(2.5)MG/3ML NEB HHN SCH ×4 (04:10→16:43)
[2022-01-14] MEDS: BLOOD SUGAR DIAGNOSTIC STRIP TEST SCH ×3 (07:30→17:30)
[2022-01-14] MEDS: INSULIN LISPRO 100 UNITS/ML SUBCUT SCH ×3 (09:19→18:47)
[2022-01-14] MEDS ORDERED: CLOTRIMAZOLE 1% VAGINAL CREAM 45GM VG SCH (21:00)
== END 2022-01-14 23:51 | DRG 870 ==
LOC: ER 13:47 → 5EST 16:00 → EDBEDREQSVC 16:18 → EDBEDREQ 16:18
PROVIDERS: ADMIT Family Medicine Adult Medicine; ATTEND Family Medicine Adult Medicine
PROC: 5A1955Z Respiratory Ventilation, Greater than 96 Consecutive Hours (ICD-10-PCS; principal; 2022-01-07)
DX: A41.51 Sepsis due to Escherichia coli [E. coli] (principal); J96.21 Acute and chronic respiratory failure with hypoxia; J15.1 Pneumonia due to Pseudomonas; E44.0 Moderate protein-calorie malnutrition; E87.1 Hypo-osmolality and hyponatremia; G93.49 Other encephalopathy; J44.0 Chronic obstructive pulmonary disease with (acute) lower respiratory infection; N39.0 Urinary tract infection, site not specified; Z99.11 Dependence on respirator [ventilator] status; I69.354 Hemiplegia and hemiparesis following cerebral infarction affecting left non-dominant side; Z16.12 Extended spectrum beta lactamase (ESBL) resistance; J95.851 Ventilator associated pneumonia; D50.9 Iron deficiency anemia, unspecified; E86.1 Hypovolemia; F03.90 Unspecified dementia, unspecified severity, without behavioral disturbance, psychotic disturbance, mood disturbance, and anxiety; A41.52 Sepsis due to Pseudomonas; Y84.8 Other medical procedures as the cause of abnormal reaction of the patient, or of later complication, without mention of misadventure at the time of the procedure; I10 Essential (primary) hypertension; L89.156 Pressure-induced deep tissue damage of sacral region; Z20.822 Contact with and (suspected) exposure to COVID-19; K21.9 Gastro-esophageal reflux disease without esophagitis; R13.10 Dysphagia, unspecified; R65.20 Severe sepsis without septic shock; Z87.01 Personal history of pneumonia (recurrent); Z68.22 Body mass index [BMI] 22.0-22.9, adult; Z88.0 Allergy status to penicillin; Z93.0 Tracheostomy status; Y92.89 Other specified places as the place of occurrence of the external cause; Z93.1 Gastrostomy status; E11.65 Type 2 diabetes mellitus with hyperglycemia
CPT/HCPCS: 36415; 36600; 71045; 80048; 80053; 80061; 80202; 81003; 82040; 82375; 82550; 82805; 82962; 83540; 83550; 83605; 83880; 84134; 84145; 84439; 84443; 84484; 85025; 87070; 87077; 87186; 87426; 87804; 90686; 90732; 93005; 94003; 94640; 99291; A6261; J0692; J1650; J1815; J1956; J2185; J3370; J7050; J7060; A4315

== ENCOUNTER 2024-03-21 11:37 | Inpatient (IN) | payer MEDICARE, MEDICAID ==
[2024-03-21] VITALS (9 sets, daily range): BP systolic 101–105; BP diastolic 59–61; PULSE 61–89; RESP 16–32; TEMP 96.8; O2SAT 99
[~2024-03-21] VITALS: Ht 165.1 cm; Wt 74.2 kg
[~2024-03-21 11:37] MED LIST changes: -IPRA3AMP9 HHN; +METF-414 PO; +MIDO10TA PO; -MIDO5TAB4 PEG; -NITR100C11 PO
[2024-03-21 12:26] LABS: BASOPHILS % 0.4 % (0.0-2.0); EOSINOPHILS % 11.5 % (0.0-5.0); HEMOGLOBIN. 7.7 g/dL (12.0-16.0); LYMPHOCYTES % 19.5 % (20.0-50.0); MEAN CORPUSCULAR HEMOGLOBIN 30.2 pg (28.0-32.0); MEAN CORPUSCULAR VOLUME 94.6 fL (81.0-99.0); MEAN PLATELET VOLUME 10.7 fl (7.4-10.4); NEUTROPHILS % 63.6 % (40.0-76.0); PLATELET 159 x1000/uL (130-400); RED BLOOD CELL COUNT 2.54 mill/uL (4.2-5.4); RED CELL DISTRIBUTION WIDTH 17.3 % (11.6-14.6); WHITE BLOOD COUNT 12.1 x1000/uL (4.5-11.0)
[2024-03-21 12:31] LABS: CHLORIDE 110 mEq/L (98-107); POTASSIUM 4.3 mEq/L (3.5-5.1); SODIUM 143 mEq/L (136-145)
[2024-03-21 12:32] LABS: CALCIUM 9.4 mg/dL (8.7-10.4); CARBON DIOXIDE 25 mEq/L (21-32)
[2024-03-21 12:37] LABS: CREATININE 0.9 mg/dL (0.6-1.0); GLUCOSE 154 mg/dL (70-105); TROPONIN I HIGH SENSITIVITY 17 ng/L (3.0-34); UREA NITROGEN BLOOD 30 mg/dL (9-23)
[2024-03-21] MEDS: LEVOFLOXACIN 500MG PREMIX 100 ML IV ONE (12:52)
[2024-03-21] MEDS: SODIUM CHLORIDE 0.9% 1000ML BAG (SEPSIS BOLUS) IV ONE (12:53)
[2024-03-21 13:05] LABS: PROTHROMBIN TIME 11.4 sec (9.6-11.0)
[2024-03-21] MEDS: IPRATROPIUM/ALBUTEROL 0.5-3(2.5)MG/3ML NEB HHN ONE (13:29)
[2024-03-21 15:02] LABS: TROPONIN I HIGH SENSITIVITY 16 ng/L (3.0-34)
[2024-03-21] MEDS ORDERED: DIPHENHYDRAMINE 50MG/ML VIAL IV PRN (15:15)
[2024-03-21 16:21] LABS: BG BASE EXCESS -1.6 mmol/L (-2.0-2.0); BG CARBOXYHEMOGLOBIN 0.3 % (0.5-1.5); BG FRACTION INSPIRED OXYGEN 35; BG HCO3 ACT 22.9 mmol/L (22.0-26.0); BG METHEMOGLOBIN 0.3 % (0.0-1.5); BG OXYHEMOGLOBIN 94.4 % (94.0-97.0); BG PCO2 37.1 mmHg (35.0-45.0); BG PH 7.408 (7.350-7.450); BG SAMPLE SITE RIGHT RADIAL; BG VENT MODE VENT - AC
[2024-03-21] MEDS ORDERED: IPRATROPIUM/ALBUTEROL 0.5-3(2.5)MG/3ML NEB HHN PRN (18:00)
[2024-03-21] MEDS ORDERED: SODIUM CHLORIDE 3% FOR INH 4ML NEB INH SCH (20:00)
[2024-03-21] MEDS: IPRATROPIUM/ALBUTEROL 0.5-3(2.5)MG/3ML NEB HHN SCH (21:50)
[2024-03-22] VITALS (23 sets, daily range): BP systolic 84–117; BP diastolic 49–74; PULSE 60–100; RESP 14–22; TEMP 96.8–98.3
[2024-03-22] MEDS ORDERED: DEXTROSE 50% WATER 50ML SYRINGE IV PRN
[2024-03-22] MEDS: INSULIN LISPRO 100 UNITS/ML SUBCUT SCH
[2024-03-22] MEDS: LACTATED RINGERS 1,000 ML IV SCH (00:06)
[2024-03-22] MEDS: BLOOD SUGAR DIAGNOSTIC STRIP TEST SCH (00:10)
[2024-03-22 05:59] LABS: T4 FREE 0.99 ng/dL (0.89-1.76)
[2024-03-22 06:00] LABS: CARBON DIOXIDE 23 mEq/L (21-32); CHLORIDE 111 mEq/L (98-107); POTASSIUM 4.3 mEq/L (3.5-5.1); SODIUM 143 mEq/L (136-145); THYROID STIMULATING HORMONE 5.95 uIU/mL (0.55-4.78)
[2024-03-22 06:01] LABS: CALCIUM 9.8 mg/dL (8.7-10.4)
[2024-03-22 06:01] LABS: FERRITIN 995 ng/mL (10-291); FOLIC ACID (FOLATE) SERUM 17.62 ng/mL (>5.38)
[2024-03-22 06:02] LABS: VITAMIN B12 SERUM 313 pg/mL (211-911)
[2024-03-22 06:34] LABS: BASOPHILS % 1.1 % (0.0-2.0); EOSINOPHILS % 13.3 % (0.0-5.0); HEMATOCRIT. 23.6 % (36.0-48.0); HEMOGLOBIN. 7.8 g/dL (12.0-16.0); LYMPHOCYTES % 25.2 % (20.0-50.0); MEAN CORPUSCULAR HEMOGLOBIN 30.4 pg (28.0-32.0); MEAN CORPUSCULAR VOLUME 92.1 fL (81.0-99.0); MEAN PLATELET VOLUME 11.1 fl (7.4-10.4); MONOCYTES % 5.3 % (2.0-8.0); NEUTROPHILS % 55.1 % (40.0-76.0); PLATELET 162 x1000/uL (130-400); RED BLOOD CELL COUNT 2.56 mill/uL (4.2-5.4); RED CELL DISTRIBUTION WIDTH 16.8 % (11.6-14.6); WHITE BLOOD COUNT 9.2 x1000/uL (4.5-11.0)
[2024-03-22 07:08] LABS: CREATININE 0.8 mg/dL (0.6-1.0); GLUCOSE 148 mg/dL (70-105); IRON 29 ug/dL (50-170)
[2024-03-22 07:09] LABS: UREA NITROGEN BLOOD 26 mg/dL (9-23)
[2024-03-22 07:11] LABS: PHOSPHORUS 2.7 mg/dL (2.5-4.9); TOTAL IRON BINDING CAPACITY 372 ug/dl (250-425)
[2024-03-22] MEDS: SODIUM CHLORIDE 3% FOR INH 15ML NEB INH SCH (07:45)
[2024-03-22] MEDS: PANTOPRAZOLE SODIUM 40 MG/VIAL IV SCH (10:15)
[2024-03-22] MEDS: LEVOFLOXACIN 250MG PREMIX 50 ML IV SCH (14:39)
[2024-03-22] MEDS: LEVOFLOXACIN 500MG PREMIX 100 ML IV SCH (14:40)
[2024-03-22] MEDS ORDERED: SODIUM CHLORIDE 3% FOR INH 4ML NEB INH SCH (16:00)
[2024-03-22] MEDS: ACETYLCYSTEINE 200MG/ML 20% VIAL 4ML INH SCH (16:16)
[2024-03-22] MEDS: SODIUM CHLORIDE 3% FOR INH 4ML NEB INH SCH (21:21)
[2024-03-23] VITALS (24 sets, daily range): BP systolic 89–131; BP diastolic 47–70; PULSE 63–102; RESP 10–26; TEMP 97.4–98.8
[2024-03-23 05:22] LABS: CHLORIDE 109 mEq/L (98-107); POTASSIUM 4.1 mEq/L (3.5-5.1); SODIUM 142 mEq/L (136-145)
[2024-03-23 05:23] LABS: CARBON DIOXIDE 23 mEq/L (21-32)
[2024-03-23 05:28] LABS: CREATININE 0.8 mg/dL (0.6-1.0); GLUCOSE 135 mg/dL (70-105)
[2024-03-23 05:29] LABS: UREA NITROGEN BLOOD 19 mg/dL (9-23)
[2024-03-23 05:44] LABS: EOSINOPHILS % 13.3 % (0.0-5.0); HEMOGLOBIN. 8.1 g/dL (12.0-16.0); LYMPHOCYTES % 28.1 % (20.0-50.0); MEAN CORPUSCULAR HEMOGLOBIN 30.7 pg (28.0-32.0); MEAN CORPUSCULAR HGB CONC 32.5 g/dL (31.0-37.0); MEAN CORPUSCULAR VOLUME 94.5 fL (81.0-99.0); MEAN PLATELET VOLUME 10.6 fl (7.4-10.4); MONOCYTES % 8.9 % (2.0-8.0); NEUTROPHILS % 48.7 % (40.0-76.0); PLATELET 167 x1000/uL (130-400); RED BLOOD CELL COUNT 2.65 mill/uL (4.2-5.4); WHITE BLOOD COUNT 9.9 x1000/uL (4.5-11.0)
[2024-03-23] MEDS: DIATR MEGLU/DIATRIZOATE SOLN 30ML PO NR (14:15)
[2024-03-23 14:26] LABS: ALBUMIN 4.1 g/dL (3.2-4.8); PREALBUMIN 6.8 mg/dl (10.0-40.0)
[2024-03-23] MEDS ORDERED: DIATR MEGLU/DIATRIZOATE SOLN 30ML ONE (14:43)
[2024-03-24] VITALS (28 sets, daily range): BP systolic 109–142; BP diastolic 52–70; PULSE 69–108; RESP 13–24; TEMP 97.7–99.1
[2024-03-24 06:30] LABS: CHLORIDE 110 mEq/L (98-107); SODIUM 144 mEq/L (136-145)
[2024-03-24 06:31] LABS: CALCIUM 10.5 mg/dL (8.7-10.4); CARBON DIOXIDE 23 mEq/L (21-32)
[2024-03-24 06:36] LABS: CREATININE 0.8 mg/dL (0.6-1.0); GLUCOSE 121 mg/dL (70-105); UREA NITROGEN BLOOD 12 mg/dL (9-23)
[2024-03-24 06:40] LABS: HEMATOCRIT 22.1 % (36.0-48.0); MEAN CORPUSCULAR HEMOGLOBIN 29.9 pg (28.0-32.0); MEAN CORPUSCULAR HGB CONC 31.7 g/dL (31.0-37.0); MEAN CORPUSCULAR VOLUME 94.2 fL (81.0-99.0); PLATELET 165 x1000/uL (130-400); RED BLOOD CELL COUNT 2.35 mill/uL (4.2-5.4); RED CELL DISTRIBUTION WIDTH 16.8 % (11.6-14.6); WHITE BLOOD COUNT 9.3 x1000/uL (4.5-11.0)
[2024-03-24] MEDS: LEVOFLOXACIN 250MG PREMIX 50 ML IV SCH (13:03)
[2024-03-24] MEDS: LEVOFLOXACIN 500MG PREMIX 100 ML IV SCH (13:03)
[2024-03-24 22:07] LABS: HEMATOCRIT 29.3 % (36.0-48.0); HEMOGLOBIN 9.7 g/dL (12.0-16.0)
[2024-03-24 23:59] LABS: INR 1.2
[2024-03-25] VITALS (23 sets, daily range): BP systolic 108–127; BP diastolic 56–78; PULSE 68–107; RESP 13–25; TEMP 96.3–98.7
[2024-03-25 06:04] LABS: CLARITY URINE CLEAR (CLEAR); COLOR URINE YELLOW (YELLOW); GLUCOSE URINE NEGATIVE (NEGATIVE); KETONES URINE TRACE (NEGATIVE); LEUKOCYTE ESTERASE URINE NEGATIVE (NEGATIVE); NITRITE URINE NEGATIVE (NEGATIVE); OCCULT BLOOD URINE NEGATIVE (NEGATIVE); PH URINE 5.5 (4.5-8.0); PROTEIN URINE 1+ (NEGATIVE); SPECIFIC GRAVITY URINE 1.016 (1.005-1.030); UROBILINOGEN URINE 0.2 E.U./dL (0.2-1.0)
[2024-03-25 07:04] LABS: SQUAMOUS EPITHELIAL CELL URINE 2+ /lpf (RARE/1+)
[2024-03-25 07:07] LABS: BACTERIA URINE NONE SEEN; WBC URINE 0-2 /hpf (0-2)
[2024-03-25 07:08] LABS: YEAST URINE 1+
[2024-03-25 08:17] LABS: HEMATOCRIT 28.1 % (36.0-48.0); HEMOGLOBIN 9.1 g/dL (12.0-16.0); MEAN CORPUSCULAR HEMOGLOBIN 29.6 pg (28.0-32.0); MEAN CORPUSCULAR HGB CONC 32.5 g/dL (31.0-37.0); MEAN CORPUSCULAR VOLUME 91.1 fL (81.0-99.0); PLATELET 161 x1000/uL (130-400); RED BLOOD CELL COUNT 3.08 mill/uL (4.2-5.4); RED CELL DISTRIBUTION WIDTH 16.9 % (11.6-14.6); WHITE BLOOD COUNT 7.6 x1000/uL (4.5-11.0)
[2024-03-25 08:29] LABS: CALCIUM 10.4 mg/dL (8.7-10.4); CARBON DIOXIDE 27 mEq/L (21-32); CHLORIDE 108 mEq/L (98-107); SODIUM 143 mEq/L (136-145)
[2024-03-25 08:34] LABS: CREATININE 0.9 mg/dL (0.6-1.0); GLUCOSE 130 mg/dL (70-105); UREA NITROGEN BLOOD 14 mg/dL (9-23)
[2024-03-25] MEDS: COLISTIMETHATE SODIUM 75MG/3ML NEB SOLN NEB SCH (09:01)
[2024-03-25 13:56] LABS: BG BASE EXCESS 0.3 mmol/L (-2.0-2.0); BG CARBOXYHEMOGLOBIN 0.3 % (0.5-1.5); BG DEOXYHEMOGLOBIN 3.5 % (0.0-5.0); BG FRACTION INSPIRED OXYGEN 35; BG HCO3 ACT 23.4 mmol/L (22.0-26.0); BG METHEMOGLOBIN 0.1 % (0.0-1.5); BG OXYGEN SATURATION 96.5 % (92.0-98.5); BG OXYHEMOGLOBIN 96.1 % (94.0-97.0); BG PCO2 32.5 mmHg (35.0-45.0); BG PH 7.476 (7.350-7.450); BG SAMPLE SITE RIGHT RADIAL; BG TOTAL HEMOGLOBIN 9.9 g/dL (12.0-18.0); BG VENT MODE VENT - AC
[2024-03-25] MEDS: PREDNISONE 20MG TABLET PO SCH (17:50)
[2024-03-26] VITALS (24 sets, daily range): BP systolic 98–150; BP diastolic 48–92; PULSE 65–108; RESP 12–29; TEMP 97.3–100.6
[2024-03-26 06:04] LABS: BASOPHILS % 0.4 % (0.0-2.0); EOSINOPHILS % 3.9 % (0.0-5.0); HEMATOCRIT. 28.4 % (36.0-48.0); HEMOGLOBIN. 9.2 g/dL (12.0-16.0); LYMPHOCYTES % 36.9 % (20.0-50.0); MEAN CORPUSCULAR HEMOGLOBIN 29.6 pg (28.0-32.0); MEAN CORPUSCULAR HGB CONC 32.3 g/dL (31.0-37.0); MEAN CORPUSCULAR VOLUME 91.4 fL (81.0-99.0); MEAN PLATELET VOLUME 10.8 fl (7.4-10.4); MONOCYTES % 7.1 % (2.0-8.0); NEUTROPHILS % 51.7 % (40.0-76.0); PLATELET 159 x1000/uL (130-400); RED BLOOD CELL COUNT 3.11 mill/uL (4.2-5.4); RED CELL DISTRIBUTION WIDTH 16.6 % (11.6-14.6); WHITE BLOOD COUNT 5.5 x1000/uL (4.5-11.0)
[2024-03-26 06:09] LABS: CARBON DIOXIDE 27 mEq/L (21-32); CHLORIDE 108 mEq/L (98-107); POTASSIUM 4.6 mEq/L (3.5-5.1); SODIUM 143 mEq/L (136-145)
[2024-03-26 06:10] LABS: CALCIUM 9.6 mg/dL (8.7-10.4)
[2024-03-26 06:14] LABS: CREATININE 0.9 mg/dL (0.6-1.0)
[2024-03-26 06:15] LABS: GLUCOSE 182 mg/dL (70-105); UREA NITROGEN BLOOD 18 mg/dL (9-23)
[2024-03-26 11:42] LABS: BG BASE EXCESS 2.8 mmol/L (-2.0-2.0); BG CARBOXYHEMOGLOBIN 0.4 % (0.5-1.5); BG DEOXYHEMOGLOBIN 2.4 % (0.0-5.0); BG FRACTION INSPIRED OXYGEN 35; BG HCO3 ACT 26.8 mmol/L (22.0-26.0); BG METHEMOGLOBIN 0.2 % (0.0-1.5); BG OXYGEN SATURATION 97.6 % (92.0-98.5); BG PCO2 38.9 mmHg (35.0-45.0); BG PH 7.456 (7.350-7.450); BG SAMPLE SITE RIGHT RADIAL; BG TOTAL HEMOGLOBIN 9.8 g/dL (12.0-18.0); BG VENT MODE VENT - AC
[2024-03-26] MEDS: ACETAMINOPHEN 650MG/20.3ML UDC GT PRN (15:35)
[2024-03-26] MEDS: ONDANSETRON HCL 4MG/2ML INJ IV PRN (21:37)
[2024-03-27] VITALS (17 sets, daily range): BP systolic 94–117; BP diastolic 46–78; PULSE 65–94; RESP 16–20; TEMP 97.6–100.3
[2024-03-27] MEDS: IPRATROPIUM/ALBUTEROL 0.5-3(2.5)MG/3ML NEB HHN SCH (01:55)
[2024-03-27 09:34] LABS: BG BASE EXCESS 2.5 mmol/L (-2.0-2.0); BG CARBOXYHEMOGLOBIN 0.5 % (0.5-1.5); BG DEOXYHEMOGLOBIN 2.5 % (0.0-5.0); BG FRACTION INSPIRED OXYGEN 40; BG HCO3 ACT 27.5 mmol/L (22.0-26.0); BG METHEMOGLOBIN 0.2 % (0.0-1.5); BG OXYGEN SATURATION 97.5 % (92.0-98.5); BG OXYHEMOGLOBIN 96.8 % (94.0-97.0); BG PCO2 44.4 mmHg (35.0-45.0); BG PO2 98.9 mmHg (75.0-100.0); BG SAMPLE SITE RIGHT RADIAL; BG TOTAL HEMOGLOBIN 9.3 g/dL (12.0-18.0); BG TOTAL RESPIRATORY RATE 16 b/min; BG VENT MODE VENT - AC
[2024-03-27] MEDS ORDERED: COLISTIMETHATE SODIUM 75MG/3ML NEB SOLN NEB SCH ×2 (21:00)
== END 2024-03-27 16:55 | DRG 870 ==
LOC: ER 11:37 → EDBEDREQ 13:15 → EDBEDREQTM 15:03 → EDBEDREQ 15:03 → 5EST 15:04 → EDBEDREQTM 15:06 → EDBEDREQSVC 15:54
PROVIDERS: ADMIT Family Medicine Adult Medicine; ATTEND Family Medicine Adult Medicine
PROC: 5A1955Z Respiratory Ventilation, Greater than 96 Consecutive Hours (ICD-10-PCS; principal; 2024-03-21)
PROC: 30233N1 Transfusion of Nonautologous Red Blood Cells into Peripheral Vein, Percutaneous Approach (ICD-10-PCS; 2024-03-24)
DX: A41.9 Sepsis, unspecified organism (principal); J18.9 Pneumonia, unspecified organism; L89.154 Pressure ulcer of sacral region, stage 4; J44.0 Chronic obstructive pulmonary disease with (acute) lower respiratory infection; J96.10 Chronic respiratory failure, unspecified whether with hypoxia or hypercapnia; Z99.11 Dependence on respirator [ventilator] status; N17.9 Acute kidney failure, unspecified; G93.40 Encephalopathy, unspecified; I69.354 Hemiplegia and hemiparesis following cerebral infarction affecting left non-dominant side; Z16.13 Resistance to carbapenem; Z16.24 Resistance to multiple antibiotics; Z20.822 Contact with and (suspected) exposure to COVID-19; D64.9 Anemia, unspecified; I11.0 Hypertensive heart disease with heart failure; I50.9 Heart failure, unspecified; F03.90 Unspecified dementia, unspecified severity, without behavioral disturbance, psychotic disturbance, mood disturbance, and anxiety; E86.0 Dehydration; I27.20 Pulmonary hypertension, unspecified; L89.610 Pressure ulcer of right heel, unstageable; E11.65 Type 2 diabetes mellitus with hyperglycemia; I48.91 Unspecified atrial fibrillation; E11.621 Type 2 diabetes mellitus with foot ulcer; K21.9 Gastro-esophageal reflux disease without esophagitis; E11.51 Type 2 diabetes mellitus with diabetic peripheral angiopathy without gangrene; E66.01 Morbid (severe) obesity due to excess calories; X58.XXXA Exposure to other specified factors, initial encounter; S90.122A Contusion of left lesser toe(s) without damage to nail, initial encounter; H35.9 Unspecified retinal disorder; B96.5 Pseudomonas (aeruginosa) (mallei) (pseudomallei) as the cause of diseases classified elsewhere; Z93.1 Gastrostomy status; Z93.0 Tracheostomy status; Z79.4 Long term (current) use of insulin; Z74.01 Bed confinement status; Z88.0 Allergy status to penicillin; Z68.27 Body mass index [BMI] 27.0-27.9, adult; Y93.9 Activity, unspecified; Y92.89 Other specified places as the place of occurrence of the external cause; Y99.8 Other external cause status
CPT/HCPCS: 36415; 36600; 71045; 74018; 76705; 80048; 81003; 82040; 82270; 82375; 82607; 82728; 82746; 82805; 82962; 83036; 83540; 83550; 83605; 83735; 83880; 84100; 84134; 84145; 84439; 84443; 84484; 85014; 85018; 85025; 85027; 85044; 85049; 85384; 86850; 86900; 86920; 87070; 87077; 87106; 87186; 87426; 93005; 93970; 94002; 94003; 94640; 99285; A6261; C1893; C9113; J0770; J1815; J1956; J2405; J7030; J7512; J7608; P9016; Q9963; A4315